=== PATIENT | male | born 2000 ===

== ENCOUNTER 2023-03-24 13:44 | Emergency (ER) | payer SELFPAY ==
[2023-03-24 15:52] LABS: SARS-CoV-2 NAA Rapid Test Not Detected (NotDetected)
== END 2023-03-24 17:30 | disposition home or self-care (01) ==
LOC: CSHERS 13:44
DX: H66.91 Otitis media, unspecified, right ear (principal)
CPT/HCPCS: 99283

== ENCOUNTER 2023-04-01 12:39 | Emergency (ER) | payer SELFPAY | END 2023-04-01 13:37 | disposition home or self-care (01) | LOC: CSHERS 12:39 | DX: H66.91 Otitis media, unspecified, right ear (principal); H73.91 Unspecified disorder of tympanic membrane, right ear | CPT/HCPCS: 99282 ==